=== PATIENT | female | born 1965 | race Caucasian/White ===

== ENCOUNTER → 2017-05-10 09:36 | Outpatient (CLI) | payer BC | END | disposition home or self-care (01) | LOC: D.MRI 05-06 13:30 | DX: M54.16 Radiculopathy, lumbar region (principal) ==

== ENCOUNTER → 2018-04-17 12:58 | Outpatient (CLI) | payer BC | END | disposition home or self-care (01) | LOC: D.RAD 12:58 | DX: M79.671 Pain in right foot (principal) ==

== ENCOUNTER 2020-10-14 10:30 | Outpatient (CLI) | payer BC ==
[2020-07-22 06:40] VITALS: BMI 27.5
[~2020-10-14 10:30] MED LIST: CRESTOR40 MG PO; DEPO-ESTRADIOL INJ; FOLIC ACID1 MG PO; HYDROCODON-ACE1 EA10; HYDROXYCHLOROQ200 MG PO; LISINOPRIL-HCT1 EAC4 PO; LYRICA150 MG PO; MEDROL DOSE PACK4 MG PO; METHOTREXATE2.5 MG PO; PREDNISONE5 MG PO; RITALIN10 MG PO; SALAGEN5 MG PO; ZOVIRAX200 MG PO; [UNRECOGNIZED DRUG - OTHER]
== END 2020-10-14 11:30 | disposition home or self-care (01) ==
LOC: D.MAMMO 10:30
PROVIDERS: ATTEND Family Medicine
DX: N64.4 Mastodynia (principal)